=== PATIENT | female | born 2000 | race Caucasian/White ===

== ENCOUNTER 2024-04-03 15:10 | Emergency (ER) | payer OTHER, SELFPAY ==
[2024-04-03 15:14] VITALS: BP 128/83
[2024-04-03 15:31] LABS: % Basophils 0.4 % (0-2); % Eosinophils 1.1 % (0-6); % Immature Granulocytes 0.3 % (0-0.5); % Lymphocytes 28.5 % (20.5-51.1); % Monocytes 7.9 % (1.7-9.3); % Neutrophils 61.8 % (42.2-75.2); Absolute Basophils 0.1 10^3/uL (0-0.2); Absolute Eosinophils 0.1 10^3/uL (0-0.7); Absolute Lymphocytes 3.6 10^3/uL (1.2-3.4); Absolute Neutrophils 7.9 10^3/uL (1.4-6.5); Hemoglobin 14.3 g/dL (12.0-16.0); Mean Corp Hgb Conc. 36.7 g/dL (33.0-37.0); Mean Corpuscular Hgb 31.7 pg (27.0-31.0); Mean Corpuscular Volume 86.5 fL (81.0-99.0); Mean Platelet Volume 8.6 fL (7.4-10.4); Nucleated Red Blood Cells % 0 %; Platelet Count 405 10^3/uL (130-400); Red Blood Cell Count 4.51 10^6/uL (4.20-5.40); Red Cell Dist. Width 11.3 % (11.5-14.5); White Blood Cell Count 12.7 10^3/uL (4.8-10.8)
[2024-04-03 15:51] LABS: HCG, Serum Qualitative Screen Negative
[2024-04-03 15:56] LABS: ALT (SGPT) 21 U/L (0-35); AST (SGOT) 18 U/L (14-36); Albumin 4.5 g/dl (3.5-5.0); Alkaline Phosphatase 63 U/L (38-126); Blood Urea Nitrogen 15 mg/dl (7-17); Calcium 10.2 mg/dl (8.4-10.2); Carbon Dioxide 26 mmol/L (22-30); Chloride 103 mmol/L (98-107); Glucose 97 mg/dl (70-99); Potassium 3.9 mmol/L (3.5-5.1); Sodium 138 mmol/L (135-145); Total Protein 7.4 g/dl (6.3-8.2); eGFR > 60.00
[2024-04-03 16:01] LABS: Troponin I < 0.012 ng/ml
[2024-04-03 16:55] VITALS: BP 100/63
[2024-04-03 17:00] VITALS: BP 111/78
[2024-04-03 17:10] VITALS: BMI 29.0
--- NOTE | 2024-04-03 17:24 | ED.GENMED ---
History of Present Illness
General
Chief Complaint: Cough
Source: patient and family
Exam Limitations: none
Time Seen by Provider: 04/03/24 16:54
Nursing documentation reviewed up to this point in time: agreed with
History of Present Illness
History of Present Illness:
Patient to ED wt complaint of cough, SOB, CP. COugh started 1.5mos ago, CP and SOB x 2 weeks. She was evaluated at initially. Given antibiotic for suspected sinusitis. No improvement. She returned a 2nd time and was given medrol dose pack
and albuterol. No improvement. SHe returned again today and was advised to come to ED. Denies fever/chills. To ED accompanied by mother for eval.
Past History
Past History
ED Past Medical History: None
ED Past Surgical History: None
Review of Systems
Review of Systems
Allergies reviewed?: Yes
All Other Systems: ROS reviewed and negative except as documented in HPI and ROS
Constitutional: Reports fatigue
EENT: Reports no symptoms
Respiratory: Reports cough and trouble breathing
Cardiac: Reports chest pain
ABD/GI: Reports no symptoms
: Reports no symptoms
Musculoskeletal: Reports no symptoms
Skin: Reports no symptoms
Neurological: Reports no symptoms
Psychiatric: Reports no symptoms
Phy Exam
General Physical Exam
General Presentation: well appearing and no apparent distress
General age: appears stated age
General Skin: warm and dry
General Habitus: normal
General Mental: alert
Cardiovascular Exam
Cardiovascular Exam: regular rate/rhythm and no edema
Pulmonary Exam
Pulmonary Exam: lungs clear and no respiratory distress
Gastrointestinal Exam
Gastrointestinal Exam: non tender and soft
Musculoskeletal Exam
Musculoskeletal Exam: full ROM and neuro vasc intact
Skin Exam
Skin Exam: normal color, warm/dry and no rash
Psychiatric Exam
Psychiatric Exam: normal mood/affect
Course
Orders/Labs/Results
Orders:
Orders
04/03/24 15:15
Electrocardiogram (*1) Urgent
Reason for Study: Chest Pain
EKG- Treatment ONCE
Test Result ONCE
CR Chest - 2 Views Urgent
Comment:
Reason For Exam: cough
04/03/24 15:25
Complete Blood Count/With Diff Urgent
Comprehensive Metabolic Panel Urgent
HCG, Serum Qualitative Screen Urgent
Troponin I Urgent
04/03/24 17:27
D-Dimer Urgent
04/03/24 17:32
Ipratropium/Albuterol Sulfate [Duoneb] 3 ml INH R NOW ONE
Abnormal Lab Results
04/03/24
15:25
WBC 12.7 H 10^3/uL
(4.8-10.8)
MCH 31.7 H pg
(27.0-31.0)
RDW 11.3 L %
(11.5-14.5)
Plt Count 405 H 10^3/uL
(130-400)
Absolute Neuts (auto) 7.9 H 10^3/uL
(1.4-6.5)
Absolute Lymphs (auto) 3.6 H 10^3/uL
(1.2-3.4)
Absolute Monos (auto) 1.0 H 10^3/uL
(0.1-0.6)
04/03/24 15:25
04/03/24 15:25
Vital Signs
Initial and Last Documented VS:
Initial Vital Signs
Temp Pulse Resp BP Pulse Ox
98.2 F 79 18 128/83 97
04/03/24 15:14 04/03/24 15:14 04/03/24 15:14 04/03/24 15:14 04/03/24 15:14
Last Documented Vital Signs
Temp Pulse Resp BP Pulse Ox
98.2 F 81 20 104/72 97
04/03/24 15:14 04/03/24 18:15 04/03/24 18:15 04/03/24 18:00 04/03/24 18:15
*Radiology
Radiology exam reviewed: radiology read reviewed
*Pulse Oximetry
Patient hypoxic: no
*Critical Care Note
Total Time (30-74mins, 75-104mins- exclusive of procedures): Not Applicable
ED Attending Note
-
Portions of this chart may have been created with voice recognition software.� Occasional wrong word or��sound alike� substitutions may have occurred due to the inherent limitations of voice recognition software.
Discharge Plan
Departure
Patient Disposition: Home (Routine Discharge)
Date of Disposition: 04/03/24
Time of Disposition: 19:30
Patient with high blood pressure during this ER visit?: No
Condition: Good
Covid-19: Not Applicable
Discharge Problem:
Acute bronchitis
Instructions: Acute Bronchitis, Adult (DC)
Prescriptions:
New
prednisone 10 mg Tablet
See Rx Instructions .ROUTE .COMPLEX Qty: 30 0RF
Rx Instructions:
Take By Mouth:
40 mg daily x3 days, 30 mg daily x3 days,
20 mg daily x3 days, 10 mg daily x3 days.
Referrals:
David Gomez DO [Family Provider] - Follow up in 2-3 days
Activity Restrictions/Additional Instructions:
Continue Albuterol inhaler, 2 puffs every 4 hours as needed for tightness, cough.
Interventions
Interventions:
*Risk Screen - Suicide Last Done: 04/03/24 15:13
*General Assessment Last Done: 04/03/24 15:13
*Neglect/Abuse Screening Last Done: 04/03/24 15:13
ED- Fall Risk Assessment Last Done: 04/03/24 17:14
*ED COVID-19 Vaccine History Last Done: 04/03/24 15:13
ED- Pulmonary Assessment Last Done: 04/03/24 17:14
Discharge Date and Time
Print Language: BOLIVIAN
--- NOTE | 2024-04-03 17:30 | EDRN ---
Victor Manuel Navarro [employer]WORK[employer] SUPERVISOR in room w/ pt at this time.
[2024-04-03 18:00] VITALS: BP 104/72
[2024-04-03 18:08] LABS: D-Dimer < 0.27 ug/mlFEU (0.00-0.50)
[2024-04-03 19:00] VITALS: BP 103/68
--- NOTE | 2024-04-03 19:00 | EDRN ---
Report received, introduced myself to patient and mom, went over labs with patient and plan, patient had a few questions which I went over and also informed Sharmila, who will go in and see patient once treatment is done
[2024-04-03] MEDS: DUONEB 3 ML INH (19:06)
--- NOTE | 2024-04-03 19:26 | EDRN ---
JUSTYNA Doll in at bedside
== END 2024-04-03 19:47 | disposition home or self-care (01) ==
LOC: EMR 15:10
PROVIDERS: Nurse Practitioner; EMERGENCY PHYSICIAN Emergency Medicine; FAMILY PHYSICIAN Family Medicine
DX: J20.9 Acute bronchitis, unspecified (principal)
CPT/HCPCS: 99283; 94640; 71046; 80053; 84484; 84703; 85025; 85379; 93005

== ENCOUNTER → 2025-07-12 12:34 | Outpatient (REF) | payer OTHER, SELFPAY | LOC: HWRAD 12:34 | PROVIDERS: ATTENDING PHYSICIAN Obstetrics & Gynecology | DX: N92.6 Irregular menstruation, unspecified (principal); N94.6 Dysmenorrhea, unspecified | CPT/HCPCS: 76830; 76856 ==